=== PATIENT | male | born 1950 | race African-American/Black ===

== ENCOUNTER 2019-05-15 09:39 | Inpatient (IN) ==
--- NOTE | 2019-05-15 11:12 | Diag Imaging Result Doc PS360 ---
EXAM: CHEST-2 VIEWS - 05/15/2019 HISTORY: cp,pleuritic TECHNIQUE: Chest two views COMPARISON: None. FINDINGS: Heart size appears within normal limits. There is mild tortuosity of the thoracic aorta with mild prominence of the aortic knob. There is atelectasis of the bilateral lung bases, most prominent on the left. The mid and upper lungs appear clear. There is no substantial pleural effusion or pneumothorax identified. IMPRESSION: Atelectasis at bilateral lung bases, most prominent on the left. Electronically signed by Kvng Bo 05/15/2019 11:10 AM
[2019-05-15 11:32] LABS: BASO# 0.02 X1000 (0.0-0.2); BASO% 0.1 % (0.0-0.8); EOS# 0.05 X1000 (0.0-0.7); EOS% 0.3 % (0.0-10.0); HEMATOCRIT 51.2 % (42.0-52.0); IMM GRAN# 0.16 X1000 (0.0-0.04); IMM GRAN% 1.1 % (0.0-0.5); LYMPH# 1.55 X1000 (1.2-3.4); LYMPH% 10.5 % (20.5-51.1); MCH 30.2 PG (27-31); MCHC 33.2 g/dL (33-37); MCV 90.9 FL (81-99); MONO# 1.08 X1000 (0.11-0.59); MONO% 7.3 % (1.7-9.3); MPV 10.2 FL (7.4-10.4); NEUT# 11.85 X1000 (1.4-6.5); NEUT% 80.7 % (42.2-75.2); PLT 184 X1000 (130-400); RBC 5.63 XMIL (4.7-6.1); RDW 14.1 % (11.5-14.5); WBC 14.71 X1000 (4.8-10.8)
--- NOTE | 2019-05-15 11:49 | EKG Report ---
Test Performed on : 05/15/2019 11:18:53 AM Test Reason : pleuritic cp Blood Pressure : / mmHG Vent. Rate : 085 BPM Atrial Rate : 085 BPM P-R Int : 136 ms QRS Dur : 084 ms QT Int : 360 ms P-R-T Axes : 044 -06 027 degrees QTc Int : 428 ms Normal sinus rhythm. Normal ECG No previous ECGs available Unconfirmed Result
[2019-05-15 12:07] LABS: INR 0.96; PROTIME 13.3 Seconds (11.0-16.0); PTT 24.1 Seconds (22.3-41.8)
[2019-05-15 12:09] LABS: AGAP 15; ALBUMIN 4.4 g/dL (3.5-5.0); ALKALINE PHOSPHATASE 93 U/L (32-122); BUN 13 mg/dL (8-22); CALCIUM 9.6 mg/dL (8.8-10.2); CHLORIDE 96 mmol/L (98-107); COSMO 280; CREATININE 1.1 mg/dL (0.7-1.2); ESTIMATED GFR > 60; GLUCOSE 114 mg/dL (70-104); GOT 18 U/L (10-34); GPT 29 U/L (10-44); POTASSIUM 4.6 mmol/L (3.5-5.1); SODIUM 140 mmol/L (136-145); TCO2 30 mmol/L (25-35); TOTAL PROTEIN 7.8 g/dL (6.3-8.3)
[2019-05-15 12:31] LABS: BILIRUBIN URINE NEGATIVE (NEGATIVE); BLOOD URINE NEGATIVE (NEGATIVE); CLARITY CLEAR (CLEAR); COLOR YELLOW; GLUCOSE URINE NEGATIVE (NEGATIVE); KETONE URINE NEGATIVE (NEGATIVE); LEUKOCYTES URINE TRACE (NEGATIVE); NITRITE URINE NEGATIVE (NEGATIVE); PROTEIN URINE TRACE mg/dL (NEGATIVE); UROBILINOGEN URINE NORMAL
[2019-05-15 12:39] LABS: URINE CAST WHITE CELL PRESENT /LPF; URINE EPITHELIAL CELLS <10 /HPF (<10); URINE SOURCE CLEAN CATCH
[2019-05-15] MEDS ORDERED: TORADOL IV ONE (13:03)
[2019-05-15] MEDS ORDERED: DILAUDID IV ONE (13:03)
[2019-05-15] MEDS ORDERED: ZOFRAN IV ONE (13:03)
[2019-05-15] MEDS ORDERED: NS 1,000 ML IV ONE (13:03)
[2019-05-15] MEDS ORDERED: ROCEPHIN 1 GM in NS 50 ML IV ONE (15:09)
--- NOTE | 2019-05-15 15:23 | Diag Imaging Result Doc PS360 ---
EXAM: CT ANGIOGRAM THORAX - 05/15/2019 HISTORY: left atelectasis v. pneumonia v. empyema TECHNIQUE: CT angiogram thorax with intravenous contrast. Axial, MPR, and 3-D MIP images are obtained. COMPARISON: 05/15/2019 chest radiographs FINDINGS: There are filling defects in bilateral pulmonary arteries. These are consistent with bilateral pulmonary emboli. There is no evidence of thoracic aortic dissection. There is atelectasis of the bilateral lung bases, most prominent on the left. There is a small amount of low-density material within atelectasis at the posterior left base which could possibly represent a small amount necrosis associated with pulmonary infarct. There is some infiltrate at the inferior left lingula which could relate to pulmonary infarct or superimposed pneumonia. There is a trace left pleural effusion. There is no pneumothorax identified. IMPRESSION: Bilateral pulmonary emboli. Atelectasis at bilateral lung bases, most prominent on the left. Infiltrate at inferior left lingula which may relate to pulmonary infarct or superimposed pneumonia. This report was discussed with Dr. Farhat Villegas on 05/15/2019 at 3:20 PM and was readback. Electronically signed by Kvng Bo 05/15/2019 3:20 PM
[2019-05-15] MEDS ORDERED: LOVENOX 1 MG/KG SUBQ ONE (15:27)
--- NOTE | 2019-05-15 15:34 | PROVIDER DOCUMENTATION ---
This chart was entered by Terri Mark Scribe, acting as scribe for Farhat White MD. HPI-General Adult - General Chief Complaint: Rib Pain Stated Complaint: SIDE PAIN Time Seen by Provider: 05/15/19 10:05 Source: patient Allergies/Adverse Reactions: Patient Allergies Allergy/AdvReac Type Severity Reaction Status Date / Time No Known Allergies Allergy Verified 05/15/19 09:59 - History of Present Illness -Gen Adult Nature of Presenting Problems: 69 yobm presents t the ed with c/o pleuritic pain for 2 days. pt sts breathing or movement makes pain worsen. pt sts if he belches or has BM pain improves. pt sts "It feels like a bubble" pt is sob secondary to pain on exam. pt sts has scitica pain as well but has been treating that for 6 weeks. pt presents today due to pleuritic pain and sob. pt on exam is mild ditress with movement, is nontoxic in appearance. 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 Location of Pain/Injury: reports: chest, back Quality of Pain: reports: sharp, stabbing Severity: reports: moderate Onset/Duration: reports: 2 days ago Timing: reports: intermittent Context/Activities at Onset: reports: eating (pt was eating with his daughter with onset) Modifying Factors: improves with: immobilization. worse with: breathing, massage, movement, palpation Associated Symptoms: reports: back/neck pain, chest pain, shortness of breath. denies: fever/chills, headaches, nausea, vomiting Similar Symptoms Previously?: No Recently seen or treated by another doctor?: No Review of Systems - Adult - REVIEW OF SYSTEMS - ADULT Constitutional: denies: chills, fever Eyes: reports: no symptoms reported Ears, Nose, Mouth & Throat: reports: no symptoms reported Cardiovascular: reports: see HPI, chest pain (pleuritic pain) Respiratory: reports: see HPI, shortness of breath. denies: cough, wheezing Gastrointestinal: denies: diarrhea, nausea, vomiting Genitourinary: reports: no symptoms reported Musculoskeletal: reports: see HPI, back pain. denies: neck pain Integumentary: reports: no symptoms reported Neurological: denies: dizziness/vertigo, headache/migraines Psychiatric: reports: no symptoms reported Endocrine: reports: no symptoms reported Hematologic/Lymphatic: reports: no symptoms reported Allergic/Immunologic: reports: no symptoms reported All Other Systems: Reviewed and Negative Past History - Adult - PAST MEDICAL HISTORY-ADULT Review of Records: reports: Old Records Reviewed, Nursing Assessment Review, Med ications Reviewed, Social history reviewed & non-contributory. Major Childhood Illnesses: reports: denies history Cardiovascular: reports: denies history Respiratory: reports: denies history Gastrointestinal: reports: denies history Genitourinary: reports: denies history Musculoskeletal: reports: other (scitica pain) Hand Dominance: Right Handed Neurological: reports: denies history Psychiatric: reports: denies history Endocrine/Immune: reports: denies history Other Conditions: reports: denies history - PRIOR SURGERIES/PROCEDURES Surgical/Procedure History: reports: reviewed, not pertinent - IMMUNIZATION STATUS Childhood Immunizations: See Nurse Assessment Flu Vaccine: See Nurse Assessment - FAMILY HISTORY Family History: reviewed, not pertinent - SOCIAL HISTORY Smoking: denies Substance Use: denies Alcohol Use Frequency: never Living Situation: family Physical Exam-General - PHYSICAL EXAM-ADULT Initial Vital Signs Reviewed: Yes - CONSTITUTIONAL General Appearance: appears well, alert, mild distress - EYES Eyes: PERRL/EOMI, pink conjunctivae - HEAD, EARS, NOSE, MOUTH & THROAT HENMT: moist mucous membranes, normal ENT inspection - NECK Neck: non-tender, full range of motion, supple, normal inspection - RESPIRATORY Respiratory: no respiratory distress, rales (bilateral), pain on inspiration, other (pleuratic chest pain) - CARDIOVASCULAR Cardiovascular: normal peripheral pulses, regular rate, rhythm - CHEST (BREASTS) Chest/Breast: tenderness (left posterior rib pain), other (pleuritic pain) - GASTROINTESTINAL (ABDOMEN) Abdominal Exam: normal bowel sounds, non tender, soft. negative: other (negative Homans sign) - GENITOURINARY Male Genitalia: deferred Rectal Exam: deferred Hemoccult Exam: deferred - MUSCULOSKELETAL Back Exam: normal inspection, no CVA tenderness, no vertebral tenderness, other (tenderness noted left posterior rib pain thoracic area) Extremity: normal range of motion, normal capillary refill, pelvis stable, swelling (RLE 1+/LLE trace edema), tenderness (rt sided sciatica but beeing treated). negative: calf tenderness - SKIN Integumentary: normal color, normal turgor, warm/dry - NEUROLOGIC Neurologic: grossly normal, no motor/sensory deficits - PSYCHIATRIC Psych/Mental Status: normal mood/affect, normal thought content, normal thought process, oriented x 3 Progress - PLAN OF CARE/RESULTS Progress/Plan/Lab Results: Vital Signs - 8 hr 05/15/19 09:55 Temperature 98.8 F Pulse Rate 84 Respiratory Rate 18 Blood Pressure 158/80 O2 Sat by Pulse Oximetry 96 Result Diagrams: 05/15/19 11:12 05/15/19 11:12 - REASSESSMENT Reassessment #1 Time Reassessed: 11:23 (dr white at bedside) Status: unchanged Reassessment #2 Time Reassessed: 12:58 (dr white at bedside) Status: unchanged Reassessment #3 Time Reassessed: 15:21 (dr white at bedside) Status: unchanged - EKG 1 Time of EKG reading by physician:: 11:18 EKG Read and Signed by:: Farhat White EKG Interpretation (*Must complete 3 of following elements*): Normal Rate: 85 Rhythm: nsr [place]: normal QRS: normal DC Interval: normal ST Wave: normal - XRAY 1 XRAY: Bilateral XRAY Study: Chest Impression: See EMR Report (EXAM: CHEST-2 VIEWS - 05/15/2019 HISTORY: cp,p leuritic TECHNIQUE: Chest two views COMPARISON: None. FINDINGS: Heart size appears within normal limits. There is mild tortuosity of the thoracic aorta with mild prominence of the aortic knob. There is atelectasis of the bilateral lung bases, most prominent on the left. The mid and upper lungs appear clear. There is no substantial pleural effusion or pneumothorax identified. IMPRESSION: Atelectasis at bilateral lung bases, most prominent on the left. Electronically signed by Kvng Bo 05/15/2019 11:10 AM 05/15/19 1110 Interpreting Physician: Kvng Bo MD Dictated Date/Time: 05/15/19 1107 cc: Farhat White MD; Jose D Maldonado MD) - CT/MRI 1 CT Study: Angiogram, Thorax Impression: Discussed w/Radiology (pt has multiple PE), See EMR Report (EXAM: CT ANGIOGRAM THORAX - 05/15/2019 HISTORY: left atelectasis v. pneumonia v. empyema TECHNIQUE: CT angiogram thorax with intravenous contrast. Axial, MPR, and 3-D MIP images are obtained. COMPARISON: 05/15/2019 chest radiographs FINDINGS: There are filling defects in bilateral pulmonary arteries. These are consistent with bilateral pulmonary emboli. There is no evidence of thoracic aortic dissection. There is atelectasis of the bilateral lung bases, most prominent on the left. There is a small amount of low-density material within atelectasis at the posterior left base which could possibly represent a small amount necrosis associated with pulmonary infarct. There is some infiltrate at the inferior left lingula which could relate to pulmonary infarct or superimposed pneumonia. There is a trace left pleural effusion. There is no pneumothorax identified. IMPRESSION: Bilateral pulmonary emboli. Atelectasis at bilateral lung bases, most prominent on the left. Infiltrate at inferior left lingula whic h may relate to pulmonary infarct or superimposed pneumonia. This report was discussed with Dr. Farhat White on 05/15/2019 at 3:20 PM and was readback. Electronically signed by Kvng Bo 05/15/2019 3:20 PM 05/15/19 1520 Interpreting Physician: Kvng Bo MD Dictated Date/Time: 05/15/19 1507 cc: Farhat White MD; Jose D Maldonado MD) CT Results: after pain meds, CT chest finally seen, looks like LLL infiltrat RWS 15:07 - CONSULTS/PCP/HOSPITALIST Notification #1 *Consult/PCP/Hospitalist*: hospitalist dr kelly Time Discussed: 15:25 Reason/Comments: multiple bilateral PE Consult Disposition: Admit Departure - Departure Date of Disposition Decision: 05/15/19 Time of Disposition Decision: 15:32 DIAGNOSIS: Pulmonary emboli, Pleuritic chest pain, LLL pneumonia, Sciatica, right side Disposition: ADMITTED INPATIENT 09 Certified Medical Emergency: Emergent Condition: Stable Referrals and Follow-Ups: Jose D Maldonado MD [Primary Care Provider] - - Critical Care Note This patient required my direct & personal management of CC.: Yes Total Time (mins): 48 Critical Care Statement: This patient required my direct personal management to treat or rule out processes, the absence of which, could potentiallly result in sudden, clinically significant life or limb threatening deterioration. Attestation - Physician/ SALLY Attestation Patient care was provided by Advanced Practice Provider:: No The physician spent face to face time with patient:: Yes Advanced Practice Provider documentation review:: Supervising physician onsite and consulted in the evaluation and care of this patient. The physician did have a face to face encounter with the patient. This chart was documented by the indicated scribe, (Terri Mark Scribe) and accurately reflects the services I performed and decisions made by me, Farhat White MD, as attested by the provider's signature.
[2019-05-15] MEDS ORDERED: LOVENOX ONE (15:38)
[2019-05-15] MEDS ORDERED: LOVENOX SUBQ ONE (16:00)
--- NOTE | 2019-05-15 17:46 | HISTORY AND PHYSICAL ---
CHIEF COMPLAINT: Pleuritic chest pain. HISTORY OF PRESENT ILLNESS: This is a 69-year-old gentleman who came into the emergency room with 2 days' history of pleuritic chest pain that gets worse with breathing and movement. He states that he has been having sciatica and lower back pain radiating to right lower extremity, because of which he has not been fairly active. He recently noted right leg swelling and pain, but did not seek any medical attention. He denies having any other complaints. PAST MEDICAL HISTORY: Degenerative disk disease of lumbar spine. PAST SURGICAL HISTORY: None. FAMILY HISTORY: Noncontributory. SOCIAL HISTORY: Patient denies any tobacco smoking or frequent alcohol intake. He does not use any recreational drugs either. CURRENT HOME MEDICATIONS: None. ALLERGIES: No known drug allergies reported. REVIEW OF SYSTEMS: A full 14-point review of system was obtained that was pretty much the same as already has been explained in the HPI. PHYSICAL EXAMINATION: VITAL SIGNS: Temperature 98.8 degrees Fahrenheit, pulse 82 per minute, respiratory rate 18 per minute, blood pressure 165/100, pulse oximetry 94% on room air. GENERAL: Patient is alert and oriented x3. He does not appear to be in any acute distress. HEENT: Within normal limits. NECK: Supple without any thyromegaly. LYMPHATICS: No lymphadenopathy noted in the neck region. CHEST: Chest wall is nontender. CARDIOVASCULAR SYSTEM: First and second heart sounds are audible without any murmurs or gallops. RESPIRATORY SYSTEM: Bilateral lung air entry is good without any rales or rhonchi. GASTROINTESTINAL SYSTEMS: Abdomen is soft and nontender. Normal bowel sounds are present. NEUROLOGIC: No focal deficits are present. GENITOURINARY: Deferred. INTEGUMENTARY: Skin is warm and dry without any rash. MUSCULOSKELETAL SYSTEM: No deformities are present. Right leg noted to be edematous with calf tenderness present. DIAGNOSTIC DATA: CBC shows WBC count of 14.71 with 80.7% neutrophils. Rest of the CBC is nondiagnostic. Comprehensive metabolic panel was nondiagnostic and magnesium levels were found to be normal at 1.9. Plasma lactate levels were found to be 1.4, and PT/PTT were within normal limits. Urinalysis showed trace WBCs and chest x-ray done at the emergency room showed atelectasis at bilateral lung bases that was most prominent at the left side. CT angiogram of the pulmonary arteries showed bilateral pulmonary emboli. IMPRESSION: Bilateral pulmonary embolism in the setting of right lower extremity deep vein thrombosis. PLAN: Patient will be admitted to the med/surg floor and I am going to initiate him on enoxaparin 1 mg/kg subcutaneously every 12 hours. He will be initiated on IV fluid normal saline at 75 mL an hour and will be given morphine sulfate 2 mg IV q.2 hours as needed for pain relief. I am going to obtain venous Doppler ultrasound of the lower extremities to confirm deep vein thrombosis. Further recommendations will be given as per hospital course. cc: Joaquin Rosenthal MD
[2019-05-15] MEDS ORDERED: ZOFRAN IV PRN (19:27)
[2019-05-15] MEDS: MORPHINE IV PRN (20:04)
[2019-05-15] MEDS: NS 1,000 ML IV SCH (21:49)
[2019-05-16] MEDS: MORPHINE IV PRN ×6 (02:57→20:51)
[2019-05-16] MEDS ORDERED: TYLENOL PO PRN (05:08)
[2019-05-16] MEDS: LOVENOX SUBQ SCH ×2 (05:27→18:36)
[2019-05-16 06:42] LABS: BASO# 0.02 X1000 (0.0-0.2); BASO% 0.1 % (0.0-0.8); EOS# 0.06 X1000 (0.0-0.7); EOS% 0.4 % (0.0-10.0); HEMOGLOBIN 14.5 g/dL (14.0-18.0); IMM GRAN# 0.09 X1000 (0.0-0.04); IMM GRAN% 0.7 % (0.0-0.5); LYMPH# 1.66 X1000 (1.2-3.4); LYMPH% 12.4 % (20.5-51.1); MCHC 32.2 g/dL (33-37); MONO# 1.18 X1000 (0.11-0.59); MONO% 8.8 % (1.7-9.3); MPV 10.2 FL (7.4-10.4); NEUT# 10.38 X1000 (1.4-6.5); NEUT% 77.6 % (42.2-75.2); PLT 179 X1000 (130-400); RBC 4.84 XMIL (4.7-6.1); RDW 14.2 % (11.5-14.5); WBC 13.39 X1000 (4.8-10.8)
[2019-05-16 06:50] LABS: AGAP 10; BUN 15 mg/dL (8-22); CALCIUM 8.3 mg/dL (8.8-10.2); CHLORIDE 102 mmol/L (98-107); COSMO 276; CREATININE 1.1 mg/dL (0.7-1.2); ESTIMATED GFR > 60; GLUCOSE 162 mg/dL (70-104); POTASSIUM 4.1 mmol/L (3.5-5.1); SODIUM 136 mmol/L (136-145); TCO2 24 mmol/L (25-35)
[2019-05-16] MEDS ORDERED: TORADOL IV ONE ×2 (11:02→12:30)
--- NOTE | 2019-05-16 12:05 | PROGRESS NOTE ---
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 SUBJECTIVE: The patient states that he had a rough night last night and he was having fever. He also has been having chest discomfort, along with lower back pain. OBJECTIVE: Vital Signs: Temperature is 99.9 degrees Fahrenheit this morning, but he had 101.1 degrees of temperature last night. Pulse rate 87 per minute, respiratory rate 16 per minute, blood pressure 137/61, pulse oximetry 95% on 2 L of oxygen via nasal cannula. General: Patient is alert and oriented x3. He appears to be in slight distress secondary to lower back pain. Cardiovascular System: First and second heart sounds are audible without any murmurs or gallops. Respiratory System: No respiratory distress noted. Bilateral lung air entry is moderately decreased, but there are no rales or rhonchi present on auscultation. Gastrointestinal System: Abdomen is benign. DIAGNOSTIC DATA: CBC which showed WBC count of 13.39 with 77.6% neutrophils. Rest of the CBC is nondiagnostic. Basic metabolic panel done this morning is nondiagnostic. CT angiogram of the pulmonary vessels showed bilateral pulmonary emboli. There was atelectasis at bilateral lung bases, most prominent on the left, with infiltrate at inferior left lingula, which may be related to pulmonary infarct or superimposed pneumonia. IMPRESSION: 1. Bilateral pulmonary emboli. 2. Lower back pain secondary to degenerative disk disease of lumbar spine. PLAN: The patient will continue to get enoxaparin 1 mg/kg subcutaneously every 12 hours. We will continue to hydrate him and give him morphine sulfate 4 mg IV q. 4 hours as needed for pain relief. A Doppler ultrasound has been ordered for lower extremities to confirm deep vein thrombosis since right leg has been swollen. I am also going to start him on levofloxacin 750 mg IV q. 24 hours since he is having fever and also has possible pneumonia on CT chest, although the infiltrate seen on CT chest could be secondary to an infarct, and fever could be secondary to increased clot burden. We will continue to monitor him here at the hospital, and further recommendations will be given as per hospital course. cc: Joaquin Rosenthal MD
[2019-05-16] MEDS: LEVAQUIN 750 MG/D5W 750 MG/150 ML IVPB IV SCH (12:06)
[2019-05-16] MEDS: NS 1,000 ML IV SCH (12:06)
--- NOTE | 2019-05-16 14:11 | Extremity Venous Study ---
EXAM: Venous U/S Bilateral Legs INDICATION: Right Leg Edema; Pulmonary PTE TECHNIQUE: COMPARISON: None. FINDINGS: There is acute occlusive thrombus involving the right superficial femoral vein, deep femoral vein, the popliteal vein, the posterior tibial vein, and peroneal veins on the right. There is no filling defects and there is normal Doppler flow, compressibility, and augmentation involving the deep venous system of the left lower extremity. The great saphenous veins appear patent bilaterally. IMPRESSION: Extensive occlusive DVT on the right as described. Electronically signed by Jay De La Garza 05/16/2019 2:09 PM
[2019-05-16] MEDS: MUCINEX D PO SCH ×2 (15:31→20:36)
[2019-05-16] MEDS ORDERED: DUONEB (A & A) INH PRN (16:55)
[2019-05-17] MEDS: MORPHINE IV PRN ×4 (00:29→22:59)
[2019-05-17] MEDS: NS 1,000 ML IV SCH ×2 (02:01→14:49)
[2019-05-17] MEDS: LOVENOX SUBQ SCH ×2 (05:29→17:37)
[2019-05-17] MEDS: MUCINEX D PO SCH ×2 (08:41→20:25)
[2019-05-17] MEDS: LEVAQUIN 750 MG/D5W 750 MG/150 ML IVPB IV SCH (12:19)
[2019-05-17] MEDS ORDERED: TORADOL IV ONE (14:49)
[2019-05-17] MEDS ORDERED: MORPHINE IV ONE (14:49)
--- NOTE | 2019-05-17 18:59 | PROGRESS NOTE ---
DATE: 05/17/2019 SUBJECTIVE: Patient reports that sensation of chest pressure and pain has resolved. Denies any fever or chills. OBJECTIVE: Vitals: Temperature 98.2 degrees, heart rate 84, respiratory 14, blood pressure 145/69, O2 saturation 98% on 2 L nasal cannula. General: This is a 69-year-old male lying in bed in no acute distress. Cardiovascular: S1, S2 heard. No murmurs, gallops, rubs, regular rate and rhythm. Respiratory: Clear bilaterally to auscultation. No work of breathing or using accessory muscles. Abdomen: Soft, nontender to palpation. Bowel sounds present. No organomegaly. Extremities: No clubbing, cyanosis, or edema. Peripheral pulses present in both legs. Neurologic: Patient is alert and oriented x3, moves 4 extremities. LABORATORY DATA: Reviewed. ASSESSMENT AND PLAN: 1. Bilateral pulmonary emboli. 2. Lower back pain secondary to degenerative disk disease of lumbar spine. PLAN: Currently patient is on Lovenox 1 mg/kg q.12 hours, will provide pain medication for this lower back pain, patient receiving also levofloxacin for this possible left lingular pneumonia, at this point considering that he has been in the hospital 2 days and he has been hemodynamically stable I think he continues to do how he is doing I think he can be discharged tomorrow. cc: Adal Yañez MD
--- NOTE | 2019-05-17 19:03 | EKG Report ---
Test Performed on : 05/17/2019 3:42:51 PM Test Reason : chest pain Blood Pressure : / mmHG Vent. Rate : 079 BPM Atrial Rate : 079 BPM P-R Int : 136 ms QRS Dur : 070 ms QT Int : 354 ms P-R-T Axes : 017 015 032 degrees QTc Int : 405 ms Normal sinus rhythm. Junctional ST depression, probably normal Borderline ECG When compared with ECG of 15-MAY-2019 11:18, (Unconfirmed) No significant change was found Confirmed by Isaías Mckay MD ([id number]) on 05/21/2019 3:14:35 PM
[2019-05-18] MEDS: LOVENOX SUBQ SCH (05:47)
[2019-05-18] MEDS: NS 1,000 ML IV SCH (05:47)
[2019-05-18 06:24] LABS: HEMOGLOBIN 13.5 g/dL (14.0-18.0); MCH 29.9 PG (27-31); MCHC 32.1 g/dL (33-37); MCV 92.9 FL (81-99); MPV 10.3 FL (7.4-10.4); RBC 4.52 XMIL (4.7-6.1); RDW 13.6 % (11.5-14.5); WBC 6.52 X1000 (4.8-10.8)
[2019-05-18 06:52] LABS: AGAP 9; BUN 12 mg/dL (8-22); CALCIUM 8.2 mg/dL (8.8-10.2); CHLORIDE 102 mmol/L (98-107); COSMO 275; ESTIMATED GFR > 60; GLUCOSE 97 mg/dL (70-104); POTASSIUM 3.9 mmol/L (3.5-5.1); SODIUM 138 mmol/L (136-145); TCO2 27 mmol/L (25-35)
[2019-05-18] MEDS: MORPHINE IV PRN (09:48)
[2019-05-18] MEDS: MUCINEX D PO SCH (09:49)
[2019-05-18] MEDS: LEVAQUIN 750 MG/D5W 750 MG/150 ML IVPB IV SCH (11:01)
[2019-05-18 12:08] VITALS: BP 144/83
--- NOTE | 2019-05-18 19:28 | DISCHARGE SUMMARY ---
ADMISSION DATE: 05/15/2019 DISCHARGE DATE: 05/18/2019 DISCHARGE DIAGNOSES: 1. Bilateral pulmonary embolism. 2. Right lower extremity deep venous thrombosis. 3. Degenerative disk disease of lumbar spine. PROCEDURES: 1. CT angiogram of the thorax showed bilateral pulmonary embolism. 2. Extremity venous bilateral legs showed extensive occlusive DVT on the right superficial femoral vein. 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 He presented to the emergency department complaining of pleuritic chest pain that got worse with breathing and movement and also there was pain in the right lower extremity. In the ER, they found out that he had a right lower extremity DVT as well, bilateral pulmonary embolism so he was started on Lovenox 1 mg/kg every 12 hours. He remained in the hospital hemodynamically stable. He was not tachycardic. Blood pressure was normal. Actually no issues noted so today he is going to be discharged in stable condition. We will switch to Xarelto today and also because there was a suspicion for possible pneumonia in the CT of the chest even though there was no leukocytosis or fever or chills, I prefer to continue 7 days of this antibiotic, in this case levofloxacin. We are going to release this patient in stable condition. DISCHARGE PHYSICAL EXAMINATION: Vital signs: Temperature 98.2 degrees, heart rate 81, respiratory rate 18, blood pressure 144/83, O2 saturation 94% on room air. General examination: This is 69-year-old male lying in bed in no acute distress. Cardiovascular: S1, S2 heard. No murmurs, gallops, or rubs. Regular rate and rhythm. Respiratory exam: Clear bilaterally to auscultation. No work of breathing or using accessory muscles. Abdomen: Soft, nontender to palpation. Bowel sounds present. No organomegaly. Extremities: No clubbing, cyanosis, or edema. Peripheral pulses present in both legs. Neurological exam: The patient is alert and oriented x3. Moves 4 extremities. DISCHARGE DISPOSITION: Home to self-care. DISCHARGE MEDICATIONS: 1. Xarelto 15 mg p.o. b.i.d. for 21 days and then Xarelto 20 mg 1 tablet p.o. daily continuously. 2. Levaquin 750 mg 1 tablet p.o. daily for 7 days. TIME DISCHARGING THIS PATIENT: 20 minutes. FOLLOWUP: He needs to see his primary care physician, Dr. Jose D Maldonado in a week. cc: Adal Yañez MD
== END 2019-05-18 14:40 | disposition home or self-care (01) | DRG 175 ==
LOC: P.ED 09:39 → P.MEDSURG 09:40 → SUATTDRO 09:40
PROVIDERS: ATTEND Internal Medicine